=== PATIENT | female | born 1955 | race Caucasian/White ===

== ENCOUNTER 2016-11-24 09:20 | Emergency (ER) | payer OTHER ==
[~2016-11-24] VITALS: Ht 157.5 cm; Wt 65.0 kg
[2016-11-24 09:34] VITALS: BP 110/76; PULSE 86; RESP 16; TEMP 98.1; O2SAT 100
[2016-11-24 09:45] VITALS: BP 110/76; PULSE 86; RESP 16; TEMP 98.1; O2SAT 100
[2016-11-24] MEDS ORDERED: IBUPROFEN 600 MG TAB PO ONE (09:45)
--- NOTE | 2016-11-24 10:03 | PD ---
HPI Chief Complaint: Injury Time Seen by Provider: 09:39 Travel History International Travel<30 days: No Contact w/Intl Traveler<30days: No Traveled to known affect area: No History of Present Illness HPI Patient is a 61-year-old female who presents to emergency room with complaints of left ankle pain. Patient reports that she was walking last night and did not see a flight of stairs, reports that she tripped and fell down 4 stairs. Reports no trauma to the head or neck, no loss of consciousness. Patient is not on any anticoagulants at this time. Patient reports that she was able to get up and walk on her legs without any difficulty. She reports that she woke up this morning had increased pain to her ankle, patient reports concern that her ankle may be broken versus sprain. Patient here for evaluation of her left ankle pain. [facility] Past Medical History Medical History: Denies Significant Hx Hx Anticoagulant Therapy: No Diabetes: No Diminished Hearing: No Tetanus Vaccination: Unknown ?: Not Past Surgical History Surgical History: No Previous Surgery Hysterectomy: Yes Other Surgery: Yes (LEFT FOOT BUNION SX ) Family History Family History: Negative Social History Alcohol Use: Yes (SOC) Tobacco Use: No Substance Use: No Allergies-Medications (Allergen,Severity, Reaction): Coded Allergies: No Known Allergies (Unverified , 11/24/16) Reported Meds & Prescriptions Reported Meds & Active Scripts Active No Active Prescriptions or Reported Medications Review of Systems General / Constitutional: No: Fever Eyes: No: Visual changes HENT: No: Headaches Cardiovascular: No: Chest Pain or Discomfort Respiratory: No: Shortness of Breath Gastrointestinal: No: Abdominal Pain Genitourinary: No: Dysuria Musculoskeletal: Positive: Limited ROM (left ankle pain), Pain (left ankle pain ) Skin: No Rash Neurologic: No: Weakness Psychiatric: No: Depression Endocrine: No: Polydipsia Hematologic/Lymphatic: No: Easy Bruising Physical Exam Narrative GENERAL: NAD, Nontoxic SKIN: Warm and dry. HEAD: Atraumatic. Normocephalic. EYES: Pupils equal and round. No scleral icterus. No injection or drainage. ENT: No nasal bleeding or discharge. Mucous membranes pink and moist. NECK: Trachea midline. No JVD. CARDIOVASCULAR: Regular rate and rhythm. No murmur appreciated. RESPIRATORY: No accessory muscle use. Clear to auscultation. Breath sounds equal bilaterally. GASTROINTESTINAL: Abdomen soft, non-tender, nondistended. Hepatic and splenic margins not palpable. MUSCULOSKELETAL: No obvious deformities. No clubbing. No cyanosis. Patient with increased swelling to left ankle, no signs of open fracture, patient with increased tenderness to lateral malleolus NEUROLOGICAL: Awake and alert. No obvious cranial nerve deficits. Motor grossly within normal limits. Normal speech. PSYCHIATRIC: Appropriate mood and affect; insight and judgment normal. Data Data Last Documented VS Vital Signs Date Time Temp Pulse Resp B/P Pulse Ox O2 Delivery O2 Flow Rate FiO2 11/24/16 09:45 98.1 86 16 110/76 100 11/24/16 09:40 Room Air Orders Ankle, Complete ([id number]) (11/24/16 ) Ice/Cold Pack (11/24/16 09:44) Ibuprofen (Motrin) (11/24/16 09:45) Splint Or Brace Apply/Monitor (11/24/16 10:17) MDM Medical Decision Making Medical Screen Exam Complete: Yes Emergency Medical Condition: Yes Interpretation(s) Vital Signs Date Time Temp Pulse Resp B/P Pulse Ox O2 Delivery O2 Flow Rate FiO2 11/24/16 09:45 98.1 86 16 110/76 100 11/24/16 09:40 16 100 Room Air 11/24/16 09:34 98.1 86 16 110/76 100 Differential Diagnosis Ankle sprain, ankle fracture Narrative Course Patient is a 61-year-old female who presents to emergency room with complaints of left-sided ankle pain. Patient reports that she had a mechanical fall down 4 stairs last night and injured her ankle on the fall. Patient reports that she was initially able to ambulate without any difficulty, reports increased pain today. Patient here to see if she has an ankle fracture versus sprain. X- ray of ankle ordered for patient. X-ray of ankle reviewed, patient was given a copy of her x-ray results. Will put patient in the ankle splint and have her follow-up with Ortho as needed. Diagnosis Primary Impression: Left ankle sprain Qualified Code: S93.402A - Sprain of left ankle, unspecified ligament, initial encounter Patient Instructions: General Instructions Additional Instructions: Please follow-up with orthopedic surgeon if symptoms progress or worsen Please return to emergency room as needed Med/Other Pt SpecificInfo: Prescription(s) given Scripts Ibuprofen 600 Mg [id number] Mg PO Q6H PRN (Pain/Inflammation) #40 TAB Ref 0 Prov:Sofya Duran DO 11/24/16 Disposition: 01 DISCHARGE HOME Condition: Stable Sofya Duran DO Nov 24, 2016 10:03
--- NOTE | 2016-11-24 10:09 | RADHPO ---
EXAM DATE/TIME: 11/24/2016 09:53 [facility] COMPARISON: No previous studies available for comparison. INDICATIONS : Left ankle pain/swelling post fall down steps. MEDICAL HISTORY : None. SURGICAL HISTORY : Hysterectomy. Left bunionectomy. Left ankle tendon repair. ENCOUNTER: Initial ACUITY: 2 days PAIN SCORE: 4/10 LOCATION: Left ankle FINDINGS: Three view exam was performed of the left ankle. The bony structures are in normal alignment. No ev idence of acute fracture or dislocation. There is soft tissue swelling over lateral malleolus. The an kle mortise is intact. No radiopaque foreign bodies are seen. Bony mineralization is normal. CONCLUSION: Soft tissue swelling over the lateral malleolus with no acute fracture or malalignmen tKaykay Orona MD on November 24, 2016 at 10:07 Board Certified Radiologist. This report was verified electronically.
[2016-11-24] MEDS ORDERED: IBUP-232 PO (10:19)
== END 2016-11-24 10:45 | disposition home or self-care (01) ==
LOC: PHED 09:20
DX: S93.402A Sprain of unspecified ligament of left ankle, initial encounter (principal); W10.8XXA Fall (on) (from) other stairs and steps, initial encounter; Y93.89 Activity, other specified; Y99.9 Unspecified external cause status
CPT/HCPCS: 73610; 99283; E0113; L1906